=== PATIENT | female | born 1985 | race Caucasian/White ===

== ENCOUNTER 2022-12-14 15:22 | Emergency (ER) | payer OTHER, MEDICAID ==
[~2022-12-14] VITALS: Ht 160 cm; Wt 72.7 kg
[2022-12-14] MEDS ORDERED: HYDROcodone/acetaminophen 10/325mg tab PO STA (15:45)
[2022-12-14 16:32] VITALS: BP 132/97
[2022-12-14] MEDS ORDERED: HYDR-3965 PO (17:29)
[2022-12-14] MEDS ORDERED: ONDA4TAB12 PO (17:29)
== END 2022-12-14 17:48 | disposition home or self-care (01) ==
LOC: ER 15:23
DX: S93.401A Sprain of unspecified ligament of right ankle, initial encounter (principal); Z79.899 Other long term (current) drug therapy; X50.1XXA Overexertion from prolonged static or awkward postures, initial encounter; Y93.89 Activity, other specified; Y92.89 Other specified places as the place of occurrence of the external cause; Y99.8 Other external cause status
CPT/HCPCS: 73610; 99283; L4360

== ENCOUNTER → 2023-09-23 | Emergency (ER) | payer OTHER, MEDICAID ==
[~2023-09-23] VITALS: Ht 160 cm; Wt 94.1 kg
[~2023-09-23] MED LIST: FLUC150T PO; ONDA4TAB12 PO
[2023-09-23 15:30] VITALS: BP 136/70; PULSE 75; RESP 17; TEMP 98.5; O2SAT 97
== END | disposition home or self-care (01) ==
LOC: ER 13:49
DX: B37.31 Acute candidiasis of vulva and vagina (principal); Z79.899 Other long term (current) drug therapy
CPT/HCPCS: 99283

== ENCOUNTER 2025-03-08 05:24 | Emergency (ER) | payer OTHER, MEDICAID ==
[~2025-03-08] VITALS: Ht 160 cm; Wt 70.5 kg
[~2025-03-08 05:24] MED LIST changes: -FLUC150T PO; +ONDA-243 PO; -ONDA4TAB12 PO
[2025-03-08 05:26] VITALS: BP 112/76; PULSE 68; RESP 19; TEMP 97.8; O2SAT 97
[2025-03-08] MEDS ORDERED: METR-159 PO (05:49)
--- NOTE | 2025-03-08 05:51 | Physician Documentation ---
History of Present Illness ~ Chief Complaint: Vaginal discharge Stated Complaint: BACTERIAL VAGINOSIS Time Seen by MD: 05:45 Primary Medical Doctor: NONE HPI This is a very pleasant 39-year-old female who presents for evaluation discharge that has been up of the weeks. Malodorous. No palliating or aggravating factors. No trigger. Similar to prior bacterial vaginosis. She would like antibiotics. Denies any other symptoms. No concern for tobacco, alcohol or illicit substances Medication Reconciliation Allergies: Coded Allergies: No Known Allergies (Unverified , 03/08/25) Scheduled ONDANSETRON ODT 4mg tablet (Ondansetron Odt), 1 TABLET PO Q6H Past Medical History Past Medical History: No Pertinent History Past Surgical History: noncontributory Drug Use: none Lives with: Spouse Lives In: Home Occupation: employed Review of Systems ROS 10 point review of systems was performed and unless noted above in HPI is negative for acute process/complaint. Physical Exam Vital Signs: Temperature: 97.8, Source: Oral, Heart Rate: 68, Respiratory Rate: 19, BP: 112/76, Pulse Oximetry: 97, Weight: 70.450 Physical Exam Physical examination: GENERAL: Awake, alert, oriented, GCS 15, no apparent distress, non-toxic appearing, answers questions, follows commands appropriately. HEENT: Atraumatic, normocephalic, pupils equal, extraocular muscles intact Active gross movements, sclerae anicteric, mucus membranes moist, no stridor. NECK: Midline, no JVD CARDIOVASCULAR: Good skin perfusion without evidence of pallor, mottling. PULMONARY: Nonlabored, symmetric chest rise, no audible wheezing, no accessory muscle use, no respiratory distress, speaking in full sentences. GASTROINTESTINAL: Not distended. NEUROLOGIC: Lucid with normal mental status. Normal facial symmetry. Moves all extremities symmetrically and with purpose. No truncal ataxia. Speech is fluid without evidence of dysarthria or aphasia, no focal deficits appreciated. EXTREMITIES: Acute deformities Skin: warm, dry PSYCHIATRIC: Normal affect, normal insight, normal concentration. Focused exam: Pelvic exam was deferred at the patient's request Progress Results/Orders Results/Orders Orders - UGO DINH DO Wet Prep (03/08/25 05:35) Vital Signs 03/08/25 05:26 Temp 97.8 Pulse 68 Resp 19 B/P (MAP) 112/76 Pulse Ox 97 Medical Decision Making Findings Facility Status: ED Holds, RME process The plan was discussed with the patient, who demonstrates clear understanding of the plan and is in agreement with the plan unless otherwise noted in the chart. All questions have been answered, all concerns were addressed unless otherwise documented. I was available throughout their ED stay for frequent reassessment and questions. Differential Diagnoses (considered and possible or likely): [Clinically and most likely represents bacterial vaginosis, less likely trichomoniasis, less likely gonorrhea or chlamydia] ??Differential Diagnoses (considered and unlikely, not requiring evaluation currently): [See above] MDM Data Please see [facility] for the following: Independent Historians and external Records Review. Historian: [Patient] Independent Historians: ?[None] Medication Management: [Reviewed medication list] Social History and determinants: [Reviewed] Please see the body of the note for the following: Any independent interpretations of ECG, imaging studies. All vitals signs/haemodynamics, ordered tests were independently reviewed and interpreted by myself. Nursing triage complaint and vitals reviewed, additional nursing notes were reviewed as available and I agree unless otherwise noted or documented in contradiction in the chart Vital Signs: Independently reviewed Labs: Independently interpreted Imaging: Independently interpreted Old Medical Records: Independently reviewed, see [facility] for relevant summary and information Additionally notably showing: [Hemodynamically stable] Tests considered but not ordered include: [Wet prep has been considerably the patient is declines] Social Determinants of Health Impact: Patient was evaluated in [facility] [place] to healthcare due to below par ratio of patient to medical providers. [] Comorbid Conditions Impacting Present Evaluation and Care/Treatment: [History of bacterial vaginosis] Management Discussions with other Healthcare Providers: [None] Treatment and Disposition Medication Management (Given or considered): []. See EMR for details Consideration for Hospitalization/Escalation/Deescalation of Care: Admission for observation has been considered, [however the patient is able to tolerate p.o., their symptoms are controlled, they are able to rely on oral medications, and their chief complaint/diagnosis can be managed on outpatient basis.] ?ED Course:?[No clinical deterioration] ?Shared decision making:?[Patient is hemodynamically stable for discharge home with follow with their primary care provider. [ ] Specific and cautious return precautions provided and discussed with full understanding. Any incidental findings were also discussed and follow up recommendations given. [] All questi ons answered. Patient/family were able to verbalize back return precautions. Patient/family agree to plan. Copies of imaging and laboratory studies were provided.] Code status:?FULL Please see the full Electronic Medical Record for full details of nursing documentation, medications list, other records of complete past medical history and conditions, vital signs, laboratory studies, and any radiologic study interpretations by radiologists. Portions of this note were completed using NextInput dictation software and as a result there may exist minor errors in spelling. I have reviewed elements of past family and social history and agree as included in note. Departure Disposition: HOME / SELF CARE / HOMELESS Impression: Primary Impression: Bacterial vaginosis Additional Impression: Vaginal discharge Condition: Improved Discharge Instructions: Bacterial Vaginosis Referrals: EMERGENCY,DEPARTMENT (PCP) Prescriptions Metronidazole* (Flagyl*) 500 Mg Tablet 1 TAB PO Q8H for 10 Days, #30 TAB Prov: UGO DINH DO 03/08/25 Metronidazole* (Flagyl*) 500 Mg Tablet 1 TAB PO Q8H for 10 Days, #30 TAB Prov: UGO DINH DO 03/08/25 Education Educated: Patient Educated regarding: diagnosis, treatment, prognosis, need for follow up Signature Scribe Signature: No scribe Attestation: This note accurately reflects clinical decisions, work performed by myself, DO FABRIZIO Keenan NICHOLAS M DO March 08, 2025 05:51
[2025-03-08] MEDS: metroNIDAZOLE 500mg tablet PO ONE (05:59)
== END 2025-03-08 06:05 | disposition home or self-care (01) ==
LOC: ER 05:25
DX: N76.0 Acute vaginitis (principal); B96.89 Other specified bacterial agents as the cause of diseases classified elsewhere
CPT/HCPCS: 99283